=== PATIENT | male | born 2000 ===

== ENCOUNTER 2022-04-14 03:43 | Emergency (ER) | payer SELFPAY ==
[2022-04-14 04:15] VITALS: BP 133/58
== END 2022-04-14 06:53 | disposition home or self-care (01) ==
LOC: ED 03:43
DX: S61.219A Laceration without foreign body of unspecified finger without damage to nail, initial encounter (principal); Z53.21 Procedure and treatment not carried out due to patient leaving prior to being seen by health care provider; X58.XXXA Exposure to other specified factors, initial encounter; Y93.89 Activity, other specified; Y92.89 Other specified places as the place of occurrence of the external cause; Y99.8 Other external cause status
CPT/HCPCS: 99282